=== PATIENT | male | born 1990 | race Caucasian/White ===

== ENCOUNTER 2019-09-23 10:45 | Inpatient (IN) | payer OTHER ==
[~2019-09-23] VITALS: Ht 172.7 cm; Wt 80.3 kg
[2019-09-23 10:51] VITALS: Ht 172.7 cm; Wt 80.3 kg
[2019-09-23 12:14] LABS: BASOPHIL % 0.2 % (0-2); PLATELET COUNT 253 x10^3mcL (130-400); RED CELL DISTRIBUTION WIDTH 12.1 % (11.5-14.5)
[2019-09-23 12:34] LABS: CALCIUM 9.2 mg/dL (8.5-10.1); CARBON DIOXIDE 28.8 mmol/L (21-32); CHLORIDE SERUM 98 mmol/L (98-107); CREATININE SERUM 1.1 mg/dL (0.7-1.3); GFR1 > 60 mL/min; GLUCOSE SERUM 88 mg/dL (74-106); SODIUM SERUM 137 mmol/L (136-145)
[2019-09-23 12:39] LABS: ALBUMIN 3.8 g/dL (3.4-5.0); ALKALINE PHOSPHATASE 94 U/L (46-116); ALT/SGPT 61 U/L (16-63); AST/SGOT 38 U/L (15-37); C REACTIVE PROTEIN 11.2 mg/dL (<=0.9)
[2019-09-23 13:16] LABS: ERYTHROCYTE SED RATE 47 mm/hr (0-15)
[2019-09-23 23:31] VITALS: BP 143/77
[2019-09-24 06:02] VITALS: BP 118/78
[2019-09-24 07:00] LABS: BASOPHIL % 0.5 % (0-2); PLATELET COUNT 248 x10^3mcL (130-400); RED CELL DISTRIBUTION WIDTH 11.8 % (11.5-14.5)
[2019-09-24 07:08] LABS: CALCIUM 8.9 mg/dL (8.5-10.1); CARBON DIOXIDE 31.1 mmol/L (21-32); CHLORIDE SERUM 102 mmol/L (98-107); GFR1 > 60 mL/min; GLUCOSE SERUM 92 mg/dL (74-106); POTASSIUM SERUM 3.7 mmol/L (3.5-5.1); SODIUM SERUM 139 mmol/L (136-145)
[2019-09-24 08:00] VITALS: BP 135/75
[2019-09-24 09:23] VITALS: BP 149/89
[2019-09-24 12:30] VITALS: BP 131/76
[2019-09-24 16:30] VITALS: BP 125/66
[2019-09-24 21:56] VITALS: BP 125/92
[2019-09-25 05:42] VITALS: BP 123/84
[2019-09-25 07:30] LABS: CALCIUM 8.6 mg/dL (8.5-10.1); CARBON DIOXIDE 29.6 mmol/L (21-32); CHLORIDE SERUM 103 mmol/L (98-107); CREATININE SERUM 0.9 mg/dL (0.7-1.3); GFR1 > 60 mL/min; GLUCOSE SERUM 84 mg/dL (74-106); POTASSIUM SERUM 3.7 mmol/L (3.5-5.1); SODIUM SERUM 139 mmol/L (136-145)
[2019-09-25 08:21] VITALS: BP 116/71
[2019-09-25] MEDS ORDERED: LEVAQUIN500 M1 PO (08:22)
[2019-09-25 12:10] VITALS: BP 120/78
[2019-09-25 13:09] VITALS: BP 120/78
== END 2019-09-25 17:40 | disposition home or self-care (01) | DRG 603 ==
LOC: ED 10:45 → EDBD 10:45 → MU 20:32
PROVIDERS: Specialist; ADMIT Internal Medicine Pulmonary Disease; ATTEND Internal Medicine Pulmonary Disease
DX: L03.115 Cellulitis of right lower limb (principal); I96 Gangrene, not elsewhere classified; F90.9 Attention-deficit hyperactivity disorder, unspecified type; W57.XXXA Bitten or stung by nonvenomous insect and other nonvenomous arthropods, initial encounter; Z79.899 Other long term (current) drug therapy; Y93.55 Activity, bike riding; Y92.89 Other specified places as the place of occurrence of the external cause; Y99.8 Other external cause status
CPT/HCPCS: 97116-GP; G0378; J1644; J2543; J3370; J3490; J7030; J7040; Q0092